=== PATIENT | male | born 1955 | race Caucasian/White ===

== ENCOUNTER 2024-06-09 17:39 | Observation (INO) ==
[2024-06-09 18:33] LABS: ABS Eosinophils 0.1 10^3/uL (0.0-0.5); ABS Lymphocytes 1.3 10^3/uL (1.0-4.8); ABS Monocytes 0.5 10^3/uL (0.0-1.1); ABS Neutrophils 4.9 10^3/uL (1.5-7.6); Hematocrit 42.6 % (38-53); Hemoglobin 14.5 g/dL (13.2-16.3); Lymphocyte % 19.5 %; Mean Corpuscular Hemoglobin 31.8 pg (27-33); Mean Corpuscular Volume 93.6 fL (80-97); Mean Platelet Volume 7.1 fL (7.5-11.2); Platelet Count 277 10^3/uL (150-450); Red Blood Count 4.55 10^6/uL (4.06-5.63); Red Cell Distribution Width 13.1 % (12-17); White Blood Count 6.9 10^3/uL (3.6-10.2)
[2024-06-09 18:42] LABS: Activated Partial Thrombo Time 28.6 seconds (26.0-38.0); INR 0.98 (0.83-1.13)
[2024-06-09] MEDS: Iodixanol (CONTRAST) 320 MG/ML 100 ML SDV IV ONE (18:51)
[2024-06-09 18:53] LABS: ALT 19 U/L (7-52); AST 25 U/L (13-39); Albumin 4.5 g/dL (3.2-5.2); Albumin/Globulin Ratio 1.8 (1-3); Alkaline Phosphatase 39 U/L (35-149); Anion Gap 7 mmol/L (2-16); Blood Urea Nitrogen 19 mg/dL (6-24); CO2 Carbon Dioxide 28 mmol/L (22-32); Calcium 9.6 mg/dL (8.6-10.3); Chloride 100 mmol/L (101-111); Cholesterol 208 mg/dL; Creatinine, Serum 1.21 mg/dL (0.67-1.17); Direct Bilirubin 0.1 mg/dL (0.03-0.18); Globulin 2.5 g/dL (2-4); Glucose 144 mg/dL (70-100); HDL Cholesterol 74.3 mg/dL; Indirect Bilirubin 0.7 mg/dL (0.3-1.0); LDL Cholesterol 121 mg/dL; Potassium 4.1 mmol/L (3.5-5.0); Sodium 135 mmol/L (135-145); Total Bilirubin 0.8 mg/dL (0.2-1.0); Triglycerides 65 mg/dL; eGFR CKD-EPI 64.8 (>60)
[2024-06-09 19:09] LABS: Alcohol, S < 13 mg/dL (<13); Creatine Kinase 172 U/L (10-223)
[2024-06-09] MEDS: Lactated Ringers 1000 ml BAG 1,000 ML IV SCH (20:38)
[2024-06-10] MEDS: Enoxaparin 40 MG/0.4 ML SYR SUBCUT SCH (00:38)
[2024-06-10] MEDS: Sulfur Hexaflouride MICROSPHR 25 MG VIAL IV ONE (02:36)
[2024-06-10 08:34] LABS: Calcium 9.4 mg/dL (8.6-10.3); Creatinine, Serum 1.04 mg/dL (0.67-1.17); Potassium 3.9 mmol/L (3.5-5.0); eGFR CKD-EPI 77.7 (>60)
[2024-06-10 11:56] VITALS: BP 137/88
== END 2024-06-10 12:00 | disposition home or self-care (01) ==
LOC: ED 17:39 → EDHOLD 17:39 → SUATTDRO 20:15 → EDHOLD 06-10 11:55
PROVIDERS: ADMIT Internal Medicine; ATTEND Student in an Organized Health Care Education/Training Program